=== PATIENT | male | born 2000 | race Caucasian/White ===

== ENCOUNTER 2019-10-31 19:10 | Emergency (ER) | payer OTHER ==
[2019-10-31 19:35] VITALS: BP 125/75; PULSE 86; TEMP 98.3; BMI 20.7
[2019-10-31] MEDS ORDERED: IBUPROFEN 600 MG TABLET (FP) PO ONE ×2 (19:59→20:02)
--- NOTE | 2019-11-01 01:08 | PDOC ---
Documentation entered by Lisa Wright SCRIBE, acting as scribe for Keyla Best MD. Keyla Bset MD: This documentation has been prepared by the scribeKyle Ana, SCRIBE, under my direction and personally reviewed by me in its entirety. I confirm that the documentation accurately reflects all work, treatment, procedures, and medical decision making performed by me. History of Present Illness - General Chief Complaint: Injury Stated Complaint: LT SHOULDER INJURY Time Seen by Provider: 10/31/19 19:17 History Source: Patient Exam Limitations: No Limitations - History of Present Illness Initial Comments: 10/31/19 19:25 Patient is a 19 year old male with no significant past medical history who presents to the ED with an injury to his left shoulder x1 hour ago. Patient stated he was riding his skateboard when he fell on his left shoulder. Patient endorses his left collar bone area being in "excruciating pain" with pain on any movement of his left shoulder. Patient denies: self medicating prior to ED arrival, fever, chills, LOC, nausea, abdominal pain, lower extremity pain or edema, or any other related symptoms Allergies: Penicillins Past History - Medical History Allergies/Adverse Reactions: Allergies Allergy/AdvReac Type Severity Reaction Status Date / Time Penicillins Allergy Verified 10/31/19 19:12 Home Medications: Ambulatory Orders NK [No Known Home Medication] 10/31/19 - Psycho-Social/Smoking History Smoking History: Never smoked Review of Systems - Review of Systems Able to Perform ROS?: Yes Comments:: 10/31/19 19:26 GENERAL/CONSTITUTIONAL: No fever or chills. No weakness. HEAD, EYES, EARS, NOSE AND THROAT: No change in vision. No ear pain or discharge. No sore throat. CARDIOVASCULAR: +Chest pain upon breathing. No loss of consciousness RESPIRATORY: No cough, wheezing, or hemoptysis. GASTROINTESTINAL: No nausea, vomiting, diarrhea or constipation. GENITOURINARY: No dysuria, frequency, or change in urination. MUSCULOSKELETAL: +Left shoulder/collar bone pain, mild neck pain. No back pain. SKIN: No rash NEUROLOGIC: No vertigo, no change in strength/sensation. ENDOCRINE: No increased thirst. No abnormal weight change. HEMATOLOGIC/LYMPHATIC: No anemia, easy bleeding, or history of blood clots. ALLERGIC/IMMUNOLOGIC: No hives or skin allergy. *Physical Exam - Vital Signs Last Vital Signs Temp Pulse Resp BP Pulse Ox 98.3 F 86 16 125/75 98 10/31/19 19:11 10/31/19 19:11 10/31/19 19:11 10/31/19 19:11 10/31/19 19:11 - Physical Exam 10/31/19 19:26 GENERAL: Awake, alert, and fully oriented. HEAD: No signs of trauma EYES: PERRLA, EOMI, sclera anicteric, conjunctiva clear ENT: Auricles normal inspection, hearing grossly normal, nares patent, oropharynx clear without exudates. Moist mucosa NECK: Nontender, no stepoffs, Normal ROM, supple, no lymphadenopathy, JVD, or masses LUNGS: Breath sounds equal, clear to auscultation bilaterally. No wheezes, and no crackles HEART: No chest wall tenderness on palpation. Regular rate and rhythm, normal S1 and S2, no murmurs, rubs or gallops ABDOMEN: Soft, nontender, normoactive bowel sounds. No guarding, no rebound. No masses EXTREMITIES: +Mild tenderness to left clavicle, disformitting palpated, mild edema of left point of left shoulder. No deforming ecchymosis noted in humerous. No clubbing or cyanosis. No cords, erythema. NEUROLOGICAL: Cranial nerves II through XII intact. 5/5 strength and sensation in all extremities, Normal speech, normal gait, normal cerebellar function SKIN: Warm, Dry, normal turgor, no rashes or lesions noted. Medical Decision Making - Medical Decision Making As noted above, is otherwise healthy 19-year-old man was seen with left clavicle/shoulder pain after falling on the area while skateboarding a few hours prior to presentation. He denies head/neck pain, shortness of breath, chest pain, abdominal pain or lower extremity discomfort. Left clavicle/left shoulder x-ray performed Preliminary interpretation by Imaging environmental monitoring specialist: No evidence of fracture/dislocation of clavicle or shoulder Results discussed with the patient and his aunt (by telephone) Patient has not had any medication for his pain since his injury. Ibuprofen 600 mg given here in the emergency room. The patient should continue ice to the area of the injury and wearing of the sling until seen by orthopedics. The family has an orthopedist, according to the patient's aunt. Copy of the x-rays (CD) provided for the patient. Discharge - Discharge Information Problems reviewed: Yes Clinical Impression/Diagnosis: Shoulder sprain Qualifiers: Encounter type: initial encounter Shoulder sprain type: unspecified sprain Laterality: left Qualified Code(s): S43.402A - Unspecified sprain of left shoulder joint, initial encounter Contusion of left clavicle Qualifiers: Encounter type: initial encounter Qualified Code(s): T14.8XXA - Other injury of unspecified body region, initial encounter Condition: Stable Disposition: HOME - Follow up/Referral - Patient Discharge Instructions Patient Printed Discharge Instructions: DI for Shoulder Sprain Additional Instructions: Ice to left clavicle/shoulder for the next 2 days Ibuprofen/acetaminophen/naproxen as needed for pain Keep left arm in sling until seen by orthopedist (but not longer than 3 days) Call your orthopedist on next business day and arrange follow-up Return to ER if you have severe, persistent pain - Post Discharge Activity
== END 2019-10-31 20:47 | disposition home or self-care (01) ==
LOC: FER 19:10
DX: S43.402A Unspecified sprain of left shoulder joint, initial encounter (principal)
CPT/HCPCS: 73000-TC-LT-FY; 73030-TC-LT-FY; 99284-25

== ENCOUNTER 2020-05-05 17:28 | Emergency (ER) | payer OTHER | END 2020-05-05 18:05 | disposition home or self-care (01) | LOC: JVIRT 17:28 | DX: Z20.822 Contact with and (suspected) exposure to COVID-19 (principal) | CPT/HCPCS: C9803; G2012-GT; U0003 ==

== ENCOUNTER 2020-11-11 10:36 | Emergency (ER) | payer OTHER | END 2020-11-11 11:44 | disposition home or self-care (01) | LOC: JVIRT 10:36 | DX: Z20.822 Contact with and (suspected) exposure to COVID-19 (principal) | CPT/HCPCS: Q3014-GT ==